=== PATIENT | female | born 1990 | race Caucasian/White ===

== ENCOUNTER 2021-02-17 21:17 | Emergency (ER) | payer BC, SELFPAY ==
--- NOTE | ~2021-02-17 | XR_ITS ---
EXAMINATION: XR shoulder RT min 2V DATE: 02/17/2021 21:35 INDICATION: Anterior right shoulder pain TECHNIQUE: AP internally and externally rotated, AP oblique externally rotated and transscapular Y vi ews of the right shoulder were obtained. COMPARISON: None FINDINGS: Normal alignment. No fracture. Glenohumeral joint is normal. Acromioclavicular joint is normal. Soft tissues are unremarkable. Visualized portions of the right lung are clear. IMPRESSION: Negative right shoulder radiographs. Reviewed, dictated and finalized at location A.
[2021-02-17 21:19] VITALS: BP 144/85; PULSE 88; RESP 18; TEMP 36.9; O2SAT 97
[2021-02-17] MEDS: KETOROLAC (*BKC) 60 MG/2 ML VIAL IM (21:57)
--- NOTE | 2021-02-17 23:02 | ED.GENADULT ---
HPI - General Adult General Chief complaint: Extremity Injury, Upper Stated complaint: right shoulder injury Time Seen by Provider: 02/17/21 21:32 History of Present Illness HPI narrative: Patient is a 30-year-old female who presents ER with right shoulder pain. Worsening over the last week. 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 No numbness or tingling going down the arm. No additional traumatic injury. Has trouble lifting her arm up above her shoulder due to this. Has not tried any pain medications. Related Data Home Medications Medication Instructions Recorded Confirmed No Home Medications 02/17/21 Allergies Allergy/AdvReac Type Severity Reaction Status Date / Time No Known Allergies Allergy Verified 02/17/21 21:17 Review of Systems Constitutional: Constitutional: Denies chills and Denies fever(s) Musculoskeletal: Musculoskeletal: Reports arthralgias, Denies joint swelling and Denies muscle cramps Neurologic: Denies focal weakness and Denies numbness PMFSH Past Medical History Medical History (Updated 02/17/21 @ 23:07 by Darrell Ceja MD) Healthy female adult Surgical History Surgical History (Updated 02/17/21 @ 23:07 by Darrell Ceja MD) History of section History of tubal ligation Social History Social History Gender identity (if verbalized by the patient): Female Exam Narrative: Exam Narrative: GENERAL: Well-appearing, well-nourished, and in no acute distress. HEAD: Normocephalic, atraumatic. EXTREMITIES: Focused exam of right upper extremity reveals no reproducible tenderness over the clavicle or acromial clavicular process. Mild anterior joint line tenderness. Passive range of motion intact. Active range of motion intact but has discomfort when she attempts to abduct above her shoulder level. Neurovascular intact. SKIN: Warm, dry, no rash. NEURO: Alert and oriented x3. PSYCH: Normal mood and affect. Course Course Emergency Course: Symptoms felt to be related to overuse injury with shoulder. Recommend rest as well as anti-inflammatories. Mild improvement with Toradol. Discharge home. Vital Signs Vital signs: Vital Signs Temperature 98.5 F 02/17/21 21:19 Pulse Rate 88 02/17/21 21:19 Respiratory Rate 18 02/17/21 21:19 Blood Pressure 144/85 H 02/17/21 21:19 Pulse Oximetry 97 02/17/21 21:19 Temperature 98.5 F 02/17/21 21:19 Pulse Rate 88 02/17/21 21:19 Respiratory Rate 18 02/17/21 21:19 Blood Pressure 144/85 H 02/17/21 21:19 Pulse Oximetry 97 02/17/21 21:19 Medical Decision Making Vital Signs Vital Signs: Vital Signs Temperature 98.5 F 02/17/21 21:19 Pulse Rate 88 02/17/21 21:19 Respiratory Rate 18 02/17/21 21:19 Blood Pressure 144/85 H 02/17/21 21:19 Pulse Oximetry 97 02/17/21 21:19 Temperature 98.5 F 02/17/21 21:19 Pulse Rate 88 02/17/21 21:19 Respiratory Rate 18 02/17/21 21:19 Blood Pressure 144/85 H 02/17/21 21:19 Pulse Oximetry 97 02/17/21 21:19 Imaging Data My impression: X-ray right shoulder: Negative. Discharge Plan Discharge Clinical Impression: Acute shoulder pain Patient Disposition: Home, Self-Care Condition: Stable Instructions: R.I.C.E. Treatment (ED), Shoulder Pain (ED) Additional Instructions: The pain in your shoulder is likely due to overuse/repetitive use injury. It will respond best to rest, ice, and anti-inflammatory medications. Return the ER if you suffer new injury, you have chest pain or shortness of breath, you have additional concerns. Prescriptions: New naproxen 500 mg tablet 500 mg PO BID Qty: 14 RF: 0 No Action No Home Medications RF: 0 Follow-up/Referrals: PHYSICIAN,CYLINDER INSPECTOR [Primary Care Provider] - Stevie Carmona MD [Physician] - 1 Week Stand Alone Forms: Work/School Release IP
[2021-02-17 23:07] VITALS: BP 138/72; PULSE 72; RESP 18; O2SAT 98
== END 2021-02-17 23:07 | disposition home or self-care (01) ==
PROVIDERS: Emergency Provider Emergency Medicine
DX: M25.511 Pain in right shoulder (principal)
CPT/HCPCS: 73030; 96372; 99283; J1885

== ENCOUNTER → 2021-10-01 01:16 | Outpatient (CLI) | payer BC, SELFPAY ==
[2021-10-01 21:22] LABS: SARS-CoV-2 RNA PCR Positive
== END ==
PROVIDERS: Visit Provider Emergency Medicine
DX: U07.1 COVID-19 (principal)
CPT/HCPCS: C9803; U0003; U0005

== ENCOUNTER 2021-10-04 12:57 | Outpatient (CLI) | payer BC, SELFPAY ==
--- NOTE | ~2021-10-04 | XR_ITS ---
XR chest 2V DATE: 10/04/2021 15:00 INDICATION: Cough TECHNIQUE: PA and lateral views COMPARISON: None FINDINGS: Normal heart size. No hilar or mediastinal enlargement. No pulmonary infiltrate or consolid ation, pleural effusion or pulmonary vascular congestion or pneumothorax is detected. Included skeletal structures are unremarkable. IMPRESSION: No active cardiopulmonary disease Reviewed, dictated and finalized at location A. 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
== END 2021-10-04 12:58 | disposition home or self-care (01) ==
LOC: ANHIMG 13:05
PROVIDERS: PCP Emergency Medicine; Visit Provider Emergency Medicine
DX: R05.9 Cough, unspecified (principal)
CPT/HCPCS: 71046

== ENCOUNTER 2024-04-22 10:12 | Emergency (ER) | payer SELFPAY ==
--- NOTE | ~2024-04-22 | CT_ITS ---
EXAMINATION: CT BRAIN W/O DATE: 04/22/2024 11:27 INDICATION: Seizures. TECHNIQUE: Computed tomography (CT) of the head was performed without intravenous contrast. The dose- length product was 605.33 mGy-cm. Automated exposure control and iterative reconstruction technique w ere employed. COMPARISON: No prior studies for comparison. FINDINGS: Normal brain parenchymal volume for age. Normal fatima-white differentiation. No acute intrac ranial hemorrhage, infarction, mass or mass effect. No ventriculomegaly or midline shift. Midline sagittal images demonstrate a normal corpus callosum, c raniovertebral junction and sella turcica. Basilar cisterns are patent. Paranasal sinuses and mastoids are pneumatized. No depressed skull fractures. IMPRESSION: 1. No acute intracranial abnormality. Reviewed, dictated and finalized at location B.
[2024-04-22 10:17] VITALS: BP 146/83; PULSE 85; RESP 20; TEMP 36.8; O2SAT 98
--- NOTE | 2024-04-22 11:16 | ED.GENADULT ---
[facility] - General Adult General Chief complaint: Unspecified Stated complaint: shakiness when sleeping Time Seen by Provider: 04/22/24 10:58 Source: patient Mode of arrival: ambulatory Limitations: no limitations History of Present Illness HPI narrative: this is a 34-year-old female who presents to the ED for chief complaint of shaking while sleeping. Patient states that her daughter has slept in her bed the past couple of nights and noticed that the patient will wake up and have a lot of upper body shaking. Daughter states that occurs from the waist up. Patient states that she had a nose bleed when she woke up yesterday. States that she has had some intermittent right-sided headache. This is not necessarily a new problem though. Headache is rated 3/10. Daughter states that the patient will wake up confused and go back to sleep and appears normal the next morning. Denies speech change, vision change, numbness, weakness, neck pain or stiffness, fevers, chills, nausea, vomiting Related Data Home Medications Medication Instructions Recorded Confirmed No Home Medications 02/17/21 Allergies Allergy/AdvReac Type Severity Reaction Status Date / Time No Known Allergies Allergy Verified 04/22/24 10:13 Review of Systems Review of Systems: All systems as dictated in [facility] Past Medical History Medical History (Updated 04/22/24 @ 11:42 by Jeff Gil PA-C) Healthy female adult Surgical History Surgical History (Updated 02/17/21 @ 23:07 by Darrell Ceja MD) History of section History of tubal ligation Social History Social History Gender identity (if verbalized by the patient): Female Exam Narrative: GENERAL: Well-appearing, well-nourished, and in no acute distress. HEAD: Normocephalic, atraumatic. EYES: PERRLA and EOMI. ENT: Nares clear, no rhinorrhea or epistaxis. Mucous membranes moist. Oropharynx without tonsillar hypertrophy exudate or other lesions. NECK: Supple. No adenopathy or masses. CHEST: No respiratory distress. Clear to auscultation. No wheezes rales or rhonchi HEART: Regular rate and rhythm. No murmur heard. Normal peripheral pulses. ABDOMEN: Soft, nontender, nondistended, normal active bowel sounds. MSK: Normal range of motion. No edema. SKIN: Warm, dry, no rash. NEURO: Alert and oriented x4. No focal deficits. cranial nerves 2-12 intact. PSYCH: Normal mood and affect. Course Vital Signs Vital signs: Vital Signs Temperature 98.3 F 04/22/24 10:17 Pulse Rate 85 04/22/24 10:17 Respiratory Rate 20 04/22/24 10:17 Blood Pressure 146/83 H 04/22/24 10:17 Pulse Oximetry 98 04/22/24 10:17 Oxygen Delivery Room Air 04/22/24 10:17 Temperature 98.3 F 04/22/24 10:17 Pulse Rate 89 04/22/24 11:57 Respiratory Rate 21 H 04/22/24 11:57 Blood Pressure 133/85 04/22/24 11:57 Pulse Oximetry 98 04/22/24 11:57 Oxygen Delivery Room Air 04/22/24 10:17 Medical Decision Making MDM Narrative Medical decision making narrative: This is a 34-year-old female who presents to the ED with chief complaint of shaking at night. Vitals are normal. Exam is benign. Neurologically fully intact. CT brain shows no acute findings. discussed with patient that there could be multiple etiologies of this shaking at night. She is well-appearing on re-evaluation. headache has improved with p.o. medications here. Pt will be discharged in stable condition. Return precautions given and supportive measures discussed. Pt is understanding and agreeable with plan for discharge and follow-up with PCP. Vital Signs Vital Signs: Vital Signs Temperature 98.3 F 04/22/24 10:17 Pulse Rate 85 04/22/24 10:17 Respiratory Rate 20 04/22/24 10:17 Blood Pressure 146/83 H 04/22/24 10:17 Pulse Oximetry 98 04/22/24 10:17 Oxygen Delivery Room Air 04/22/24 10:17 Temperature 98.3 F 04/22/24 10:17 Pulse Rate 89 04/22/24 11:5
[2024-04-22] MEDS: ACETAMINOPHEN 500 MG TABLET 1000 MG PO (11:45)
[2024-04-22] MEDS: IBUPROFEN 400 MG TABLET 800 MG PO (11:45)
[2024-04-22 11:57] VITALS: BP 133/85; PULSE 89; RESP 21; O2SAT 98
== END 2024-04-22 11:57 | disposition home or self-care (01) ==
PROVIDERS: Emergency Provider Physician Assistant
DX: R25.8 Other abnormal involuntary movements (principal)
CPT/HCPCS: 70450; 99284; A9270

== ENCOUNTER 2024-07-04 08:56 | Emergency (ER) | payer OTHER, SELFPAY ==
[2024-07-04 10:41] VITALS: RESP 18
[2024-07-04 10:44] VITALS: BP 145/99; PULSE 85; RESP 18; O2SAT 94
[2024-07-04] MEDS: IBUPROFEN 400 MG TABLET 800 MG PO (11:06)
--- NOTE | 2024-07-04 11:18 | ED.GENADULT ---
HPI - General Adult General Chief complaint: Unspecified Stated complaint: sore throat, body aches Time Seen by Provider: 07/04/24 10:57 Source: patient and RN notes reviewed Mode of arrival: ambulatory Limitations: no limitations History of Present Illness HPI narrative: This is a 34 year old female who presents for evaluation of URI. Patient states she has been ill for 2 days. She reports runny nose, congestion, dry cough, and sore throat for 2 days. She is unsure of fever but she reports chills. She is not taking any medication for her symptoms . She is eating without difficulty Related Data Home Medications Medication Instructions Recorded Confirmed No Home Medications 02/17/21 Allergies Allergy/AdvReac Type Severity Reaction Status Date / Time No Known Allergies Allergy Verified 07/04/24 08:58 Review of Systems Constitutional: Constitutional: Reports body ache(s), Reports headache(s) and Denies weakness ENT: Reports nasal congestion and Reports sore throat Cardiovascular: Cardiovascular: Denies syncope, Denies rapid heart rate, Denies irregular heart rhythm, Denies leg edema and Denies dyspnea Respiratory: Respiratory: Denies chest congestion, Reports cough, Denies hemoptysis, Denies excessive phlegm production and Denies dyspnea Gastrointestinal: Gastrointestinal: Denies abdominal pain, Denies hematochezia, Denies diarrhea and Denies vomiting Genitourinary: Genitourinary: Denies hematuria and Denies dysuria Musculoskeletal: Musculoskeletal: Denies joint swelling, Denies loss of height and Denies muscle weakness Neurologic: Denies syncope, Denies focal weakness and Denies weakness PMFSH Past Medical History Medical History Healthy female adult Surgical History Surgical History (Updated 02/17/21 @ 23:07 by Darrell Ceja MD) History of section History of tubal ligation Social History Social History Gender identity (if verbalized by the patient): Female Exam Narrative: GENERAL: well-nourished, and in no acute distress. HEAD: Normocephalic, atraumatic EYES: PERRLA and EOMI, conjunctiva clear without discharge EARS: TM's clear bilaterally without erythema or dullness NOSE: Nares clear, no rhinorrhea or epistaxis THROAT:Mucous membranes moist, Oropharynx normal without erythema, exudate, peritonsillar swelling or fluctuance NECK: Supple, without lymphadenopathy or mass RESPIRATORY: No respiratory distress, Airway patent, Respirations non-labored, Clear to auscultation without rales, rhonchi or wheeze HEART: Regular rate and rhythm. No murmur heard. Normal peripheral pulses. ABDOMEN: Soft, nontender, nondistended, normal active bowel sounds. No masses. No rebound or guarding, No organomegaly. EXTREMITIES: No edema, normal strength with full range of motion. SKIN: Warm, dry, normal color without rash NEURO: Alert and oriented x3. CN 2-12 grossly intact. No focal deficits. PSYCH: Normal mood and affect. Course Reevaluation(s) Reevaluation #1: I Discussed with patient that she has been found to have covid. PAtient is stable for discharge. Date: 07/04/24 Time: 11:45 Vital Signs Vital signs: Vital Signs Respiratory Rate 18 07/04/24 10:41 Temperature 98.4 F 07/04/24 11:48 Pulse Rate 80 07/04/24 12:00 Respiratory Rate 19 07/04/24 12:00 Blood Pressure 132/71 07/04/24 12:00 Pulse Oximetry 98 07/04/24 12:00 Medical Decision Making Vital Signs Vital Signs: Vital Signs Respiratory Rate 18 07/04/24 10:41 Temperature 98.4 F 07/04/24 11:48 Pulse Rate 80 07/04/24 12:00 Respiratory Rate 19 07/04/24 12:00 Blood Pressure 132/71 07/04/24 12:00 Pulse Oximetry 98 07/04/24 12:00 Lab Data Lab results reviewed: Yes I reviewed the patient's lab results. Labs: Lab Results 07/04/24 Range/U
[2024-07-04 11:34] LABS: Influenza A QL RT-PCR Negative (Negative); Influenza B QL RT-PCR Negative (Negative); RSV RNA, RT-PCR Negative (Negative); SARS-CoV-2 RNA PCR Positive (Negative)
[2024-07-04 11:48] VITALS: TEMP 36.9
[2024-07-04 12:00] VITALS: BP 132/71; PULSE 80; RESP 19; O2SAT 98
== END 2024-07-04 12:01 | disposition home or self-care (01) ==
PROVIDERS: Emergency Medicine; Emergency Provider General Practice
DX: U07.1 COVID-19 (principal)
CPT/HCPCS: 87637; 99283; A9270

== ENCOUNTER 2024-09-17 17:37 | Emergency (ER) | payer OTHER, SELFPAY ==
--- NOTE | ~2024-09-17 | XR_ITS ---
EXAMINATION: XR lumbar spine 2-3V DATE: 09/17/2024 18:10 INDICATION: Low back injury. TECHNIQUE: 3 views of lumbar spine were obtained. COMPARISON: Lumbar spine radiographs 10/12/2016 FINDINGS: Alignment is normal. Vertebral body heights and intervertebral disc heights are normal. The re is an osteophyte at superior endplate of L4. There is multilevel mild facet joint osteoarthritis. Surgical clips in the right upper quadrant are likely from cholecystectomy. IMPRESSION: 1. Mild lumbar spondylosis. Reviewed, dictated and finalized at location A. 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 Mild lumbar spondylosis.
[2024-09-17 17:40] VITALS: BP 149/96; PULSE 91; RESP 18; TEMP 36.5; O2SAT 100
--- NOTE | 2024-09-17 18:03 | ED.GENADULT ---
HPI - General Adult General Chief complaint: Fall Stated complaint: fall Time Seen by Provider: 09/17/24 17:47 History of Present Illness HPI narrative: Patient is a 34-year-old female who presents ER for evaluation. She was at work when she tripped and fell striking her left lower back just above the gluteal cleft on a safe. Sudden onset pain. Developed bruising. Bruising and area of discomfort have increased. She feels some mild numbness in the area. No saddle anesthesia. No difficulty with urination. She is able to ambulate. Did not strike her head or lose consciousness. Related Data Allergies Allergy/AdvReac Type Severity Reaction Status Date / Time No Known Allergies Allergy Verified 09/17/24 17:38 Review of Systems Constitutional: Constitutional: Reports no additional constitutional complaints Musculoskeletal: Musculoskeletal: Reports back pain, Denies arthralgias and Denies joint swelling Neurologic: Reports system reviewed and no additional complaints, except as documented PMFSH Past Medical History Medical History Healthy female adult Surgical History Surgical History (Updated 02/17/21 @ 23:07 by Darrell Ceja MD) History of tubal ligation History of section Social History Social History Gender identity (if verbalized by the patient): Female Exam Narrative: GENERAL: Well-appearing, well-nourished, and in no acute distress. HEAD: Normocephalic, atraumatic. ENT: Mucous membranes moist. Back: No midline tenderness of the T/L-spine. There is bruising ear L5 laterally on left sides. The gluteal cleft. Sharp and soft touch intact. EXTREMITIES: Normal range of motion. No edema. SKIN: Warm, dry, no rash. NEURO: Alert and oriented x3. PSYCH: Normal mood and affect. Course Course Emergency Course: Toradol for pain. No fracture. D/c with naproxen/flexeril. F/u with PCP. Vital Signs Vital signs: Vital Signs Temperature 97.7 F 09/17/24 17:40 Pulse Rate 91 09/17/24 17:40 Respiratory Rate 18 09/17/24 17:40 Blood Pressure 149/96 H 09/17/24 17:40 Pulse Oximetry 100 09/17/24 17:40 Oxygen Delivery Room Air 09/17/24 17:40 Temperature 97.7 F 09/17/24 17:40 Pulse Rate 91 09/17/24 17:40 Respiratory Rate 18 09/17/24 17:40 Blood Pressure 149/96 H 09/17/24 17:40 Pulse Oximetry 100 09/17/24 17:40 Oxygen Delivery Room Air 09/17/24 17:40 Medical Decision Making Vital Signs Vital Signs: Vital Signs Temperature 97.7 F 09/17/24 17:40 Pulse Rate 91 09/17/24 17:40 Respiratory Rate 18 09/17/24 17:40 Blood Pressure 149/96 H 09/17/24 17:40 Pulse Oximetry 100 09/17/24 17:40 Oxygen Delivery Room Air 09/17/24 17:40 Temperature 97.7 F 09/17/24 17:40 Pulse Rate 91 09/17/24 17:40 Respiratory Rate 18 09/17/24 17:40 Blood Pressure 149/96 H 09/17/24 17:40 Pulse Oximetry 100 09/17/24 17:40 Oxygen Delivery Room Air 09/17/24 17:40 Imaging Data Radiologist's impression: ITS Impressions Lumbar Spine X-Ray 09/17/24 18:19 IMPRESSION: 1. Mild lumbar spondylosis. Discharge Plan Discharge Clinical Impression: Contusion of back Patient Disposition: Home, Self-Care Condition: Stable Instructions: Contusion in Adults (ED) Additional Instructions: You have a bruise severe left low back he may have strained a muscle. Take anti-inflammatories muscle relaxers. Ice the area. Follow-up with your primary care doctor for further treatment and evaluation. Please return to the emergency department if you develop severe pain that is not controlled by pain medications or if you are unable to walk because of pain or weakness. Return to the emergency department immediately if you develop fevers, loss of bowel or bladder control (dribbling of urine or having accidents you wouldn't normally have), inability to urinate, numbness of your genital or anal area, or weakness/numbness of your legs or arms as these could all be signs of a serious medical emergency. Patient Language: Icelandic Prescriptions: New cyclobenzaprine 10 mg tablet 10 mg PO TID PRN (Reason: muscle spasm) Qty: 20 0RF naproxen 375 mg tablet 375 mg PO BID Qty: 14 0RF No Action naproxen 500 mg tablet 500 mg PO BID Qty: 14 0RF Follow-up/Referrals: Shamar Pimentel MD [Physician] - 1 Week PHYSICIAN,OUTSOLE SPLICER [Primary Care Provider] - Stand Alone Forms: Work/School Release IP
[2024-09-17] MEDS: KETOROLAC (*BKC) 60 MG/2 ML VIAL IM (18:21)
== END 2024-09-17 18:49 | disposition home or self-care (01) ==
PROVIDERS: Emergency Provider Emergency Medicine
DX: S30.0XXA Contusion of lower back and pelvis, initial encounter (principal); M47.816 Spondylosis without myelopathy or radiculopathy, lumbar region; W01.0XXA Fall on same level from slipping, tripping and stumbling without subsequent striking against object, initial encounter
CPT/HCPCS: 72100; 96372; 99283; J1885

== ENCOUNTER 2024-12-13 00:24 | Emergency (ER) | payer OTHER, SELFPAY ==
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
--- OUTSIDE RECORDS SUMMARY | 2024-12-13 00:26 | XMS_ITS | Clinical Summary ---
Author Organization [facility] Address [address] [place] [address] Phone Care Team Providers Care Surtass Analyst Name Role Phone Provider, None Primary Care Provider Unavailabl e Allergies No known active allergies Medications No known medications Immunizations Immunization Administration Dates Next Due TDAP Vaccine 09/24/2019 Social History Tobacco Use Types Packs/Day Years Used Date Smoking Tobacco: Every Day Smokeless Tobacco: Never Alcohol Use Standard Drinks/Week Comments Never 0 (1 standard drink = 0.6 oz pur e alcohol) AUDIT-C Answer Date Recorded Frequency of Alcohol Consumption Never 09/24/2019 Average Number of Drinks Not on file 019 Frequency of Binge Drinking Not on file 08/30 Comments Unknown Sex and Gender Information Value Date Recorded Sex Assigned at Not on file Legal Sex Female 8:52 PM ELECTRICAL PROSPECTING SUPERVISOR Gender Identity Not on file Sexual Orientation Not on file Last Filed Vital Signs Vital Sign Reading Time Taken Comments Blood Pressure 136/78 10/03/2019 11:15 AM ELECTRICAL PROSPECTING SUPERVISOR Pulse 87 10/03/2019 11:15 AM ELECTRICAL PROSPECTING SUPERVISOR Temperature 36.9 C (98.4 F) 10/03/2019 11:15 AM ELECTRICAL PROSPECTING SUPERVISOR Respiratory Rate 16 10/03/2019 11:15 AM ELECTRICAL PROSPECTING SUPERVISOR Oxygen Saturation 100% 10/03/2019 11:15 AM ELECTRICAL PROSPECTING SUPERVISOR Inhaled Oxygen Concentration - - Weight 90.7 kg (200 lb) 10/03/2019 11:15 AM ELECTRICAL PROSPECTING SUPERVISOR Height 175.3 cm (5' 9 ) 10/03/2019 11:15 AM ELECTRICAL PROSPECTING SUPERVISOR Body Mass Index 29.53 10/03/2019 11:15 AM ELECTRICAL PROSPECTING SUPERVISOR Plan of Treatment Health Maintenance Due Date Last Done Comments Hepatitis C Virus (HCV) Screening 1991 Hepatitis B Immunization (1 of 3 - 19+ 3-dose series) 2010 Pap Smear 2012 Cervical Cancer Screening (CCS) 2021 HPV/Cotest 2021 Influenza Immunization (#1) 2024 SARS-COV-2 Immunization ( season) 2024 01/20/2021, 12/30/2020 Respiratory Syncytial Virus (RSV) Immunization (Adult) (1 - 1-dose 75+ series) 2066 DTaP/Tdap/Td Immunization Discontinued 09/24/2019 Meningococcal Immunization (ACWY) Aged Out No longer eligible based on patient's age to complete this topic Pneumococcal Immunization Combined Aged Out No longer eligible based on patient's age to complete this topic Rotavirus Immunization Aged Out No lo nger eligible based on patient's age to complete this topic Insurance [place] [place] [id number] Care Teams Surtass Analyst Relationship Specialty Start Date End Date Provider, None [place] PCP - General 08/29/19
--- OUTSIDE RECORDS SUMMARY | 2024-12-13 00:26 | XMS_ITS | Clinical Summary ---
Author Organization [facility] Address [address] [place] [id number] Care Team Providers Care Golf Course Designer Name Role Phone Unavailable Primary Care Provider Unavailabl e Social History Tobacco Use Types Packs/Day Years Used Date Smoking Tobacco: Never Assessed Comments Unknown Sex and Gender Information Value Date Recorded Sex Assigned at Not on file Legal Sex Female 8:00 PM CDT Gender Identity Not on file Sexual Orientation Not on file Last Filed Vital Signs Vital Sign Reading Time Taken Comments Blood Pressure 124/80 06/16/2017 4:47 PM CDT Pulse 94 06/16/2017 4:47 PM CDT Temperature - - Respiratory Rate - - Oxygen Saturation - - Inhaled Oxygen Concentration - - Weight 109 kg (240 lb 6.1 oz) 06/16/2017 4:47 PM CDT Height 175.3 cm (5' 9 ) 06/16/2017 4:47 PM CDT Body Mass Index 35.5 06/16/2017 4:47 PM CDT Plan of Treatment Health Maintenance Due Date Last Done Comments Cervical Cancer Screening Pa p Smear (Age 30 to 64) Every 3 Years 1991 Annual Physical 1994 Hepatitis C 2009 DTaP, Tdap and Td Vaccines ( 1 - Tdap) 2010 Hepatitis B Vaccines (1 of 3 - 19+ 3-dose series) 2010 Cervical Cancer Screening Pa p with HPV Testing (Age 30 to 64) Every 5 Years 2021 Cervical Cancer Screening with HPV 2021 COVID-19 Vaccine ( - 2023-2 5 season) 2024 Influenza Adult (#1) 2024 HPV Vaccines Aged Out No longer eligi ble based on patient's age to complete this topic Meningococcal B Vaccine Aged Out No l onger eligible based on patient's age to complete this topic Meningococcal Vaccine Aged Out No jose antonio sary eligible based on patient's age to complete this topic Pneumococcal Vaccine: Pediat rics (0 to 5 Years) and At-Risk Patients (6 to 64 Years) Aged Out No longer eligible b ased on patient's age to complete this topic RSV Immunizations Under 20 Months Aged Out No longer eligible based on patient's age to complete this topic
--- OUTSIDE RECORDS SUMMARY | 2024-12-13 00:27 | XMS_ITS | Clinical Summary ---
Author Organization [facility] Address [address] [place] [address] Care Team Providers Care Laborer Electroplating Name Role Phone Stevie Carmona MD Primary Care Provider [phone] Allergies No known active allergies Medications ondansetron ODT (ZOFRAN-ODT) 4 mg disintegrating tablet Take 1 tablet (4 mg total) by mouth every 8 (eight) hours as needed for nausea 20 tablet Active Social History Tobacco Use Types Packs/Day Years Used Date Smoking Tobacco: Never Assessed Personal Safety Answer Date Recorded Getting School Help Needed Not on file 11/29 Comments No Sex and Gender Information Value Date Recorded Sex Assigned at Not on file Legal Sex Female 10:31 AM CDT Gender Identity Not on file Sexual Orientation Not on file Last Filed Vital Signs Vital Sign Reading Time Taken Comments Blood Pressure 127/76 01/31/2022 2:38 PM CDT Pulse 73 01/31/2022 2:38 PM CDT Temperature 36.9 C (98.4 F) 01/31/2022 10:46 AM CDT Respiratory Rate 16 01/31/2022 2:38 PM CDT Oxygen Saturation 100% 01/31/2022 2:38 PM CDT Inhaled Oxygen Concentration - - Weight 109.1 kg (240 lb 8.4 oz) 022 10:46 AM CDT Height 175.3 cm (5' 9 ) 01/31/2022 10:4 6 AM CDT Body Mass Index 35.52 01/31/2022 10:46 AM CDT Plan of Treatment Health Maintenance Due Date Last Done Comments Cervical Cancer Screening 1991 Depression Screening 1991 Hepatitis C Screening 1991 Varicella Vaccines (1 of 2 - 13+ 2-dose series) 2004 Hepatitis B Screening 2009 Regular Well Visit/Exam 18-64 2009 Covid-19 Vaccine (3 2023-2 5 season) 2024 01/20/2021, 12/30/2020 Influenza Vaccine (#1) 2024 DTaP/Tdap/Td Vaccine (2 - Td or Tdap) 09/24/2029 09/24/2019 HPV Vaccines Aged Out No longer eligi ble based on patient's age to complete this topic Pneumococcal vaccine <65 Aged Out No longer eligible based on patient's age to complete this topic Insurance [facility] Care Teams Laborer Electroplating Relationship Specialty Start Date End Date Stevie Carmona MD PCP - General Emergency Medicine 01/31/22
--- OUTSIDE RECORDS SUMMARY | 2024-12-13 00:27 | XMS_ITS | Referral Summary ---
Author Organization [facility] Address [address] [place] [address] Care Team Providers Care Instruction Assistant Principal Name Role Phone Stevie Carmona MD Primary Care Provider [phone] Allergies No known active allergies Medications ondansetron [...] 01/31/2022 10:46 AM CDT Plan of Treatment Not on file Insurance [facility] PL[facility] Care Teams Instruction Assistant Principal Relationship Specialty Start Date End Date Stevie Carmona MD PCP - General Emergency Medicine 01/31/22
[2024-12-13 00:32] VITALS: BP 152/104; PULSE 82; RESP 17; TEMP 36.6; O2SAT 100
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
--- OUTSIDE RECORDS SUMMARY | 2024-12-13 01:39 | XMS_ITS | Clinical Summary ---
Author Organization [facility] ([place], [place]) Address [address] [place] [address] Care Team Providers Care Clinical Nursing Intern Name Role Phone Stevie Carmona MD Primary Care Provider [phone] Allergies No known active allergies Medications ondansetron [...] patient's age to complete this topic Insurance [facility] PL[facility] Care Teams Clinical Nursing Intern Relationship Specialty Start Date End Date Stevie Carmona MD PCP - General Emergency Medicine 01/31/22
--- OUTSIDE RECORDS SUMMARY | 2024-12-13 01:39 | XMS_ITS | Clinical Summary ---
Author Organization [facility] Address [address] [place] [address] Phone Care Team Providers Care Window Glass Cutter Off Name Role Phone Provider, None Primary Care [...] on file Legal Sex Female 8:52 PM SALES OPERATIONS SPECIALIST Gender Identity Not on file Sexual Orientation Not on file Last Filed Vital Signs Vital Sign Reading Time Taken Comments Blood Pressure 136/78 10/03/2019 11:15 AM SALES OPERATIONS SPECIALIST Pulse 87 10/03/2019 11:15 AM SALES OPERATIONS SPECIALIST Temperature 36.9 C (98.4 F) 10/03/2019 11:15 AM SALES OPERATIONS SPECIALIST Respiratory Rate 16 10/03/2019 11:15 AM SALES OPERATIONS SPECIALIST Oxygen Saturation 100% 10/03/2019 11:15 AM SALES OPERATIONS SPECIALIST Inhaled Oxygen Concentration - - Weight 90.7 kg (200 lb) 10/03/2019 11:15 AM SALES OPERATIONS SPECIALIST Height 175.3 cm (5' 9 ) 10/03/2019 11:15 AM SALES OPERATIONS SPECIALIST Body Mass Index 29.53 10/03/2019 11:15 AM SALES OPERATIONS SPECIALIST Plan of Treatment Health Maintenance Due Date [...] to complete this topic Insurance [employer] [id number] Care Teams Window Glass Cutter Off Relationship Specialty Start Date End Date Provider, None [place] PCP - General 08/29/19
--- OUTSIDE RECORDS SUMMARY | 2024-12-13 01:39 | XMS_ITS | Clinical Summary ---
Author Organization [facility] Address [address] [place] [id number] Care Team Providers Care Shredding Machine Knife Changer Name Role Phone Unavailable Primary Care Provider [...]
--- OUTSIDE RECORDS SUMMARY | 2024-12-13 01:39 | XMS_ITS | Referral Summary ---
Author Organization [facility] Address [address] [place] [address] Care Team Providers Care Sand Control Worker Name Role Phone Stevie Carmona MD Primary Care Provider [phone] Allergies No known active allergies Medications ondansetron [...] Plan of Treatment Not on file Insurance [facility] [employer] Member Subscriber Plan / Payer (Ef fective 2022-Present) Name:Christy Ortega Relation to Subscriber:Self Name:Christy Ortega Payer ID:[id number] (NAIC) Group ID:Not on file Type:MEDICAID RISK OTHER Address: [facility] [place] [address] [facility] [employer] Care Teams Sand Control Worker Relationship Specialty Start Date End Date Stevie Carmona MD PCP - General Emergency Medicine 01/31/22
[2024-12-13 02:09] LABS: Basophils Percent Auto 0.3 % (0.2-1.2); Eosinophils Absolute Auto 0.5 K/mm3 (0-0.3); Eosinophils Percent Auto 4.9 % (0-4.4); Hematocrit 38.6 % (37.0-47.0); Hemoglobin 12.8 g/dL (12.0-15.0); Immature Granulocyte Absolute 0.02 K/mm3 (0.00-0.031); Immature Granulocyte Percent A 0.2 % (0-0.5); Lymphocytes Absolute Auto 2.45 K/mm3 (0.9-3.2); Lymphocytes Percent Auto 26.3 % (18.3-44.2); Mean Corpuscular HGB Conc 33.2 g/dl (32-36); Mean Corpuscular Hemoglobin 31.1 pg (26-34); Mean Corpuscular Volume 93.9 fl (80-100); Mean Platelet Volume 9.9 fl (7.4-10.4); Monocytes Absolute Auto 0.7 K/mm3 (0.1-0.6); Monocytes Percent Auto 7.8 % (2.6-8.5); Neutrophils Absolute Auto 5.6 K/mm3 (1.3-6.7); Neutrophils Percent Auto 60.5 % (45.5-73.1); Platelet Count Result 353 k/mm3 (150-375); Red Blood Count 4.11 M/mm3 (4.2-5.4); Red Cell Distribution Width 12.9 % (11.5-14.5); White Blood Count 9.3 K/mm3 (4.5-10.0)
[2024-12-13 02:22] LABS: Alanine Aminotransferase 26 U/L (6-35); Albumin Level 4.1 g/dL (3.5-5.1); Alkaline Phosphatase 67 U/L (38-126); Anion Gap 12 mmol/L (4-12); Aspartate Amino Transferase 21 U/L (14-36); Bilirubin,Total 0.3 mg/dL (0.2-1.3); Blood Urea Nitrogen 11 mg/dL (7-17); Carbon Dioxide 24 mmol/L (22-30); Chloride 103 mmol/L (98-107); Estimated CRCL calculation 134 ml/min; Estimated Glomerular Filt Rate > 60; Glucose 105 mg/dL (65-110); Sodium 139 mmol/L (137-145)
[2024-12-13 02:23] LABS: BEDSIDEPREGUCG Negative (Negative)
[2024-12-13] MEDS: LIDOCAINE 5% PATCH 1 PATCH TRANSDERM (03:34)
[2024-12-13] MEDS: HYDROcodone/acetaminophen (*CRX) 5-325 MG TABLET 1 TAB PO (03:35)
[2024-12-13] MEDS: KETOROLAC 30 MG/ML VIAL (*BKC) IM (03:35)
[2024-12-13 03:40] LABS: Add Urine Microscopic? YES; Appearance Urine Turbid (Clear); Bacteria Urine 4+ /hpf; Bilirubin Urine 1+ (Negative); Blood Urine 3+ (Negative); Glucose Urine UA Negative (Negative); Ketones Urine Negative (Negative); Leukocyte Esterase Ur 2+ LEU/UL (Negative); Need Manual Microscopic Reviewed; Nitrate Urine Positive (Negative); Non Pathogenic Casts 0-2; Protein Urine 2+ mg/dL (Negative); Specific Grav Ur 1.028 (1.001-1.035); Squamous Epithelial Cell Urine Occasional /hpf (Few); Urobilinogen Urine 0.2 mg/dL (<2.0)
[2024-12-13 03:41] VITALS: BP 129/86; PULSE 79; RESP 14; O2SAT 98
[2024-12-13 03:42] LABS: Color Urine Brown (Yellow); RBC Urine >100 /hpf (0-2)
[2024-12-13] MEDS: SULFAMETHOXAZOLE/TRIMETHOPRIM 800/160 MG DS TABLET 1 TAB PO (05:11)
== END 2024-12-13 06:06 | disposition home or self-care (01) ==
PROVIDERS: Emergency Provider Student in an Organized Health Care Education/Training Program
DX: S30.1XXA Contusion of abdominal wall, initial encounter (principal); S70.02XA Contusion of left hip, initial encounter; S39.92XA Unspecified injury of lower back, initial encounter; N39.0 Urinary tract infection, site not specified; V43.52XA Car driver injured in collision with other type car in traffic accident, initial encounter
CPT/HCPCS: 36415; 71260; 72129; 72132; 74177; 80053; 81001; 81025; 85025; 87086; 87186; 96372; 99284; A9270; J1885; Q9967

== ENCOUNTER 2025-08-03 09:29 | Emergency (ER) | payer OTHER, SELFPAY ==
--- NOTE | ~2025-08-03 | XR_ITS ---
Examination: XR ankle LT min 3V, XR foot LT min 3V Clinical History: FALL X TODAY PAIN LT FOOT/ ANKLE Comparison: None Technique: 4 views left ankle, 4 views left foot Findings/impression: Left ankle: 1. No acute fracture or dislocation left ankle. 2. Chronic avulsion fracture fragment lateral malleolus tip. Left foot: 1. No fracture or dislocation. Reviewed, dictated and finalized at location [facility]. [facility]
[2025-08-03 09:33] VITALS: BP 146/99; PULSE 95; RESP 18; TEMP 36.5; O2SAT 98
--- OUTSIDE RECORDS SUMMARY | 2025-08-03 10:11 | XMS_ITS | Data Portability ---
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 Plan of Treatment Reminders Order Date Submit Date Provider Last Modified By Organization Details Last Modified Time Details Appointments None recorded. Lab CBC 2015 016 CHRISTINA In-Office Order, Internal Use Only DO Not Attach Compendium DO Not Attach Compendium, Do Not Delete/merge, [id number] 6 16:17:56 CMP, serum or plasma 2015 016 EPS [facility], [address], [address], [place], [address], 6 07:19:57 TSH, serum or plasma 2015 016 EPS [facility], [address], [address], [place], [address], 6 07:19:58 CMP, serum or plasma 2014 015 EPS [facility], [address], [address], [place], [address], 5 06:36:08 amylase, serum or plasma 2014 015 EPS [facility], [address], [address], [place], [address], 5 06:36:08 lipase, serum or plasma 2014 015 CHRISTINA [employer] [facility], [address], [address], [place], [address], 5 06:36:09 CBC 2014 015 CHRISTINA In-Office Order, Internal Use Only DO Not Attach Compendium DO Not Attach Compendium, Do Not Delete/merge, [id number] 5 15:58:12 Referral None recorded. Procedures None recorded. Surgeries None recorded. Imaging ultrasound , gallbladde r [address] Scheduling Imaging Referrals, [address], [place], [address], 5 09:47:13 ultrasound , abdomen, limited 2014 015 [facility] Scheduling Imaging Referrals, [address], [place], [address], 5 12:22:25 Medication Orders lisinopril 10 mg tablet 2015 016 INTERFACE [facility], [facility]., [address], [place], [place], [id number], 6 15:43:04 Nifedical XL 30 mg tablet,ext ended release [address], [facility]., [address], [place], [place], [id number], 5 14:22:15 Patient TargetsNo targets recorded. Patient Instructions Encounter Date Encounter Id Patient Instructions Last Modified By Organization Details Last Modified Time 03/07/2015 [id number] Keep wound clean and dry. Return if develops sign of infection, draining pus, erythema or pain. [email or web address] Not available 03/07/2015 16:55:00 03/17/2015 [id number] She will follow up if her headache worsens or her blood pressure goes higher. [email or web address] Not available 03/17/2015 15:04:51 12/29/2015 [id number] dash diet: care instructions [email or web address] Not available 12/29/2015 15:37:18 Follow-up in one month or sooner if needed. [email or web address] Not available 12/29/2015 15:34:09 Greater than 50% of this visit was spent in counseling and coordination of care. 15 mins. [email or web address] Not available 12/29/2015 15:34:09 Reason for Referral None Reported. Results Created Date Observation Date Name Description Value Unit Range Abnormal Flag Note LastModifiedBy Organization Detail LastModifiedTime 03/17/20 15 03/18/2015 CMP, serum or plasm a glucose 75 mg/dL 65-99 normal Fasti ng refer ence inter [email or web address] Not Available [address], [address], 03/18/2015 06:36:08 03/17/20 15 03/18/2015 CMP, serum or plasm a urea nitrogen (BUN) 12 mg/dL 7-25 normal Not Available [address], [address], 03/18/2015 06:36:08 03/17/20 15 03/18/2015 CMP, serum or plasm a creatinine 0.77 mg/dL 0.50-1 .10 normal Not Available [address], [address], 03/18/2015 06:36:08 03/17/20 15 03/18/2015 CMP, serum or plasm a BUN/creatini ne ratio NOT APPLIC ABLE (calc ) 6-22 Not Available [facility] [address], [address], 03/18/2015 06:36:08 03/17/20 15 03/18/2015 CMP, serum or plasm a sodium 142 mmol/ L 135-14 6 normal Not Available [address], [address], 03/18/2015 06:36:08 03/17/20 15 03/18/2015 CMP, serum or plasm a potassium 4.5 mmol/ L 3.5-5. 3 normal Not Available [address], [address], 03/18/2015 06:36:08 03/17/20 15 03/18/2015 CMP, serum or plasm a chloride 107 mmol/ L 98-110 normal Not Available [address], [address], 03/18/2015 06:36:08 03/17/20 15 03/18/2015 CMP, serum or plasm a carbon dioxide 26 mmol/ L 19-30 normal Not Available [address], [address], 03/18/2015 06:36:08 03/17/20 15 03/18/2015 CMP, serum or plasm a calcium 9.5 mg/dL 8.6-10 .2 normal Not Available [address], [address], 03/18/2015 06:36:08 03/17/20 15 03/18/2015 CMP, serum or plasm a protein, total 7.0 g/dL 6.1-8. 1 normal Not Available [address], [address], 03/18/2015 06:36:08 03/17/20 15 03/18/2015 CMP, serum or plasm a albumin 4.1 g/dL 3.6-5. 1 normal Not Available [address], [address], 03/18/2015 06:36:08 03/17/20 15 03/18/2015 CMP, serum or plasm a globulin 2.9 g/dL_ (calc ) 1.9-3. 7 normal Not Available [address], [address], 03/18/2015 06:36:08 03/17/20 15 03/18/2015 CMP, serum or plasm a albumin/glob ulin ratio 1.4 (calc ) 1.0-2. 5 normal Not Available [address], [address], 03/18/2015 06:36:08 03/17/20 15 03/18/2015 CMP, serum or plasm a bilirubin, total 0.4 mg/dL 0.2-1. 2 normal Not Available [address], [address], 03/18/2015 06:36:08 03/17/20 15 03/18/2015 CMP, serum or plasm a alkaline phosphatase 72 U/L 33-115 normal Not Available [facility] [employer] [address], [address], 03/18/2015 06:36:08 03/17/20 15 03/18/2015 CMP, serum or plasm a AST 16 U/L 10-30 normal Not Available [address], [address], 03/18/2015 06:36:08 03/17/20 15 03/18/2015 CMP, serum or plasm a ALT 23 U/L 6-29 normal Not Available [address], [address], 03/18/2015 06:36:08 03/17/20 15 03/18/2015 amyla se, serum or plasm a amylase 35 U/L 21-101 normal Not Available [address], [address], 03/18/2015 06:36:08 03/17/20 15 03/18/2015 lipas e, serum or plasm a lipase 56 U/L 7-60 normal Not Available [address], [address], 03/18/2015 06:36:09 12/29/19 16 12/30/2015 CMP, serum or plasm a glucose 73 mg/dL 65-99 normal Fasti ng refer ence inter jessica Not Available [address], [address], 12/30/2015 07:19:57 12/29/19 16 12/30/2015 CMP, serum or plasm a urea nitrogen (BUN) 18 mg/dL 7-25 normal Not Available [address], [address], 12/30/2015 07:19:57 12/29/1912/30/2015 CMP, serum or plasm a creatinine 0.73 mg/dL 0.50-1 .10 normal Not Available [address], [address], 12/30/2015 07:19:57 12/29/1912/30/2015 CMP, serum or plasm a eGFR non-afr. mauritian 115 mL/mi n/1.7 3m2 > or = 60 normal Not Available [address], [address], 12/30/2015 07:19:57 12/29/1912/30/2015 CMP, serum or plasm a eGFR 134 mL/mi n/1.7 3m2 > or = 60 normal Not Available [address], [address], 12/30/2015 07:19:57 12/29/1912/30/2015 CMP, serum or plasm a BUN/creatini ne ratio NOT APPLIC ABLE (calc ) 6-22 Not Available [address], [address], 12/30/2015 07:19:57 12/29/1912/30/2015 CMP, serum or plasm a sodium 140 mmol/ L 135-14 6 normal Not Available [address], [address], 12/30/2015 07:19:57 12/29/192016 CMP, serum or plasm a potassium 3.7 mmol/ L 3.5-5. 3 normal Not Available [address], [address], 12/30/2015 07:19:57 12/29/19 16 12/30/2015 CMP, serum or plasm a chloride 105 mmol/ L 98-110 normal Not Available [address], [address], 12/30/2015 07:19:57 12/29/1912/30/2015 CMP, serum or plasm a carbon dioxide 26 mmol/ L 19-30 normal Not Available [address], [address], 12/30/2015 07:19:57 12/29/1912/30/2015 CMP, serum or plasm a calcium 9.8 mg/dL 8.6-10 .2 normal Not Available [address], [address], 12/30/2015 07:19:57 12/29/1912/30/2015 CMP, serum or plasm a protein, total 7.1 g/dL 6.1-8. 1 normal Not Available [address], [address], 12/30/2015 07:19:57 12/29/1912/30/2015 CMP, serum or plasm a albumin 4.2 g/dL 3.6-5. 1 normal Not Available [address], [address], 12/30/2015 07:19:57 12/29/1912/30/2015 CMP, serum or plasm a globulin 2.9 g/dL_ (calc ) 1.9-3. 7 normal Not Available [address], [address], 12/30/2015 07:19:57 12/29/19 16 12/30/2015 CMP, serum or plasm a albumin/glob ulin ratio 1.4 (calc ) 1.0-2. 5 normal Not Available [address], [address], 12/30/2015 07:19:57 12/29/19 16 12/30/2015 CMP, serum or plasm a bilirubin, total 0.3 mg/dL 0.2-1. 2 normal Not Available [address], [address], 12/30/2015 07:19:57 12/29/19 16 12/30/2015 CMP, serum or plasm a alkaline phosphatase 56 U/L 33-115 normal Not Available [facility] [employer] [address], [address], 12/30/2015 07:19:57 12/29/19 16 12/30/2015 CMP, serum or plasm a AST 13 U/L 10-30 normal Not Available [address], [address], 12/30/2015 07:19:57 12/29/19 16 12/30/2015 CMP, serum or plasm a ALT 15 U/L 6-29 normal Not Available [address], [address], 12/30/2015 07:19:57 12/29/1912/30/2015 TSH, serum or plasm a TSH 1.16 mIU/L normal Refer ence Range > or = 20 Years 0.40- 4.50 Pregn mohsen Range s First trime ster 0.26- 2.66 Secon d trime ster 0.55- 2.73 Third trime ster 0.43- 2.91 Not Available [address], [address], 12/30/2015 07:19:58 03/24/20 15 03/24/2015 ultra sound , abdom en, limit ed No observ ation record ed. [facility] Scheduling Imaging Referrals [address], [place], [address], 03/27/2015 16:01:06 12/11/19 16 12/09/2015 imagi ng/di veliaos tic resul t No observ ation record ed. [email or web address] [facility] Scheduling Imaging Referrals [address], [place], [address], 12/13/2015 09:43:17 Result Notes None recorded. Problems Name Problem SNOMED Code Status Onset Date Resolution Date Notes Provider Name and Address Organization Details Recorded Time Abdominal pain 33967713 [place], [address], [facility] 6 15:24:40 Abdominal pain 62014590 Completed [place], [address], [facility] 5 16:45:28 Urinary tract infectious disease 52820543 [place], [address], [facility] 6 15:24:39 Urinary tract infectious disease 20839871 Com[place], [address], [facility] 5 16:45:29 Dehydration 69879836 [place], [address], [facility] 6 15:24:39 Dehydration 04460984 Completed [place], [address], [facility] 5 16:45:28 Backache 014777404 [place], [address], [facility] 6 15:24:39 Backache 294661999 Completed Jerri Lee MD [address] [place], [address], [facility] 5 16:45:29 Vaginal discharge 522227162 Active Brenda Martinez APRN [address] [place], [address], [facility] 6 15:24:39 Vaginal discharge 043506552 Completed Jerri Lee MD [address] [place], [address], [facility] 5 16:45:28 Dysuria 61199174 Active Brenda Martinez APRN [address] [place], [address], [facility] 6 15:24:40 Dysuria 90863795 Completed Jerri Lee MD [address] [place], [address], [facility] 5 16:45:28 Chlamydial infection 313089234 Active Brenda Martinez APRN [address] [place], [address], [facility] 6 15:24:39 Chlamydial infection 323524765 Completed Jerri Lee MD [address] [place], [address], [facility] 5 16:45:28 Chlamydia detected by PCR (polymerase chain reaction) 222334037 [place], [address], [facility] 6 15:24:40 Chlamydia detected by PCR (polymerase chain reaction) 628421178 Completed [place], [address], [facility] 5 16:45:28 Hypertensiv e disorder 92095880 Active Brenda Martinez APR[place] [address], [address], [facility] 6 15:37:18 Leukocytosi s 939937620 Active Brenda Martinez APR[place] [address] [place], [address], [facility] 6 16:19:59 Problem Notes None recorded. Procedures Surgical History Date Name Laterality Status Provider Name and Address Organization Details Recorded Time 5 Caesarean Section completed [facility] 03/07/2015 15:35:55 4 Date of Last Pap Smear completed Jerri Lee MD [address] [place] [address], [address], [facility] 03/07/2015 16:55:01 9 Orthopedic Surgery completed [facility] 10/04/2014 10:59:47 Imaging Results None recorded. Procedure Notes None recorded. Medical Equipment None Reported. Allergies No known drug allergies Medications Name Sig Start Date Stop Date Status Note LastModified by Organization Details LastModified Time nifedipine ER 30 mg tablet,exten ded release 24 hr Take 1 tablet every day by oral route. active Not Available Not Available No t Available hydrocodone 5 mg-acetamino phen 325 mg tablet Take 1 tablet every 6 hours by oral route. active Not Available Not Available No t Available Zithromax 250 mg tablet Take all 4 tablets at one time 2014 active Not Available Not Available Not Avai lable metronidazol e 500 mg tablet Take 1 tablet every 8 hours by oral route. 2014 active Not Available Not Available Not Avai lable Nexium 20 mg capsule,kierra yed release Take 1 capsule every day by oral route. active Not Available Not Available No t Available nifedipine ER 60 mg tablet,exten ded release 24 hr Take 1 tablet every day by oral route. active Not Available Not Available No t Available lisinopril 10 mg tablet Take 1 tablet every day by oral route for 30 days. 2015 active Not Available Not Available Not Avai lable labetalol 100 mg tablet ONE TABLET TWICE DAILY 03/21 completed Not Available Not Available Not Available amoxicillin 875 mg-potassium clavulanate 125 mg tablet Take 1 tablet every 12 hours by oral route. 2014 active Not Available Not Available Not Avai lable ONE TABLET DAILY active Not Available Not Available No t Available Vitals Date Recorded Body weight Oxygen saturation Oxygen saturation in Arterial blood by Pulse oximetry Body height Body mass index (BMI) Body temperature Heart rate Respiratory rate Systolic And Diastolic Systolic And Diastolic Provider Name and Address Organization Details Last Updated DateTime 6 055297. 39127 g 98 % 98 % 175.26 cm 32.8 kg/m2 97.1 [degF] 89 /min 20 /min 150/100 mm[Hg] 138/90 mm[Hg] Melanie Li LPN [facility] 6 15:13:16 Date Recorded Body height Body mass index (BMI) Body weight Heart rate Systolic And Diastolic Systolic And Diastolic Provider Name and Address Organization Details Last Updated DateTime 5 175.26 cm 33.7 kg/m2 966290. 48867 g 80 /min 144/100 mm[Hg] 130/90 mm[Hg] Tamara [facility] 5 16:01:54 Date Recorded Systolic And Diastolic Provider Name and Address Organization Details Last Updated DateTime 03/13/2015 140/90 mm[Hg] [facility] Rodgers [facility] 03/13/2015 15:33:48 Date Recorded Body height Body mass index (BMI) Heart rate Body weight Systolic And Diastolic Provider Name and Address Organization Details Last Updated DateTime 03/17/2015 175.26 cm 34.1 kg/m2 76 /min 711454.8 3747 g 152/98 mm[Hg] Tamara [facility] 03/17/2015 14:30:42 Date Recorded Heart rate Body weight Body height Body mass index (BMI) Systolic And Diastolic Provider Name and Address Organization Details Last Updated DateTime 03/23/2015 72 /min 354782.2 0695 g 175.26 cm 34.7 kg/m2 138/102 mm[Hg] Tamara Anguiano [facility] 03/23/2015 10:36:41 Social History Question Answer Notes LastModified by [employer] Details LastModified Time Tobacco Smoking Status Never Smoker Tamara nation, [facility] 10/04/2014 11:00:54 What Is Your Level Of Caffeine Consumption? Occasional Information not available 03/23/2015 How Much Tobacco Do You Chew? None Information not available 10/04/2014 What Type Of Diet Are You Following? REGULAR Information not available 12/29/2015 Which Illicit Or Recreational Drugs Have You Used? NONE Information not available 10/04/2014 Education 12 Information no t available 12/29/2015 Hard Of Hearing Or Deaf In One Or Both Ears? No Information not available 12/29/2015 Legally Blind In One Or Both Eyes? No Information no t available 12/29/2015 Marital Status Single Informatio n not available 03/23/2015 Seat Belts Used Routinely Yes Information not available 12/29/2015 Smoke Alarm In Home Yes Information not available 03/23/2015 Sex: Unknown Functional Status Question Answer Note LastModified by Organizat ion Details LastModified Time What is your level of alcohol consumption? None Information not available 10/04/2014 What is your occupation? [employer] Information not available 12/29/2015 What is your exercise level? Occasional Information not available 12/29/2015 Mental Status None recorded. Family History Relationship Description Onset Age of this Age Resolved Age Notes LastModified by Organization Details LastModified Time Father Well male adult fwages Not available 2015 15:13:16 Mother History of hypotension fwages Not available 09/2015 15:13:16 Medical History No medical history recorded. Gynecological History Statement/Question Response Abnormal Pap N Flow Moderate On BCP's at Conception? N HPV Vaccine N Duration of Flow (days) 4 Age at Menarche 15 Current Control Method Tubal Ligat ion Age at First Child 20 Frequency of Cycle (Q days) 28 Menses Monthly Y Date of Last Pap Smear 09/15/2014 Approximate Obstetrics History GPAL:G 3 P 2 1 0 3 Type Value Full Term 2 Premature 1 Living 3 Total 3 Immunizations Vaccine Type Date Status Note Provider Nam e and Address Organization Details Recorded Time Tdap 12/07/2014 completed Jerri Lee MD [address] [place] [address], [address], [facility] 12/08/2014 13:15:05 Influenza, high-dose, trivalent, PF 08/10/2014 completed Tamara nation [facility] 10/04/2014 10:50:24 Past Encounters Encounter ID Performer Location Encounter Start Date Encounter Closed Date Diagnosis/Indication Diagnosis SNOMED-CT Code Diagnosis ICD10 Code Diagnosis IMO Codes Diagnosis Note [id number] Jerri Lee MD [address] [place] [address] 10/04/2014 09:48:40 10/04/2014 14:00:01 Normal [id number] Jerri Lee MD [address] [place] [address] 10/26/2014 10:03:50 10/26/2014 13:29:20 Abdominal pain 89228869 Normal 53223597 Urinary tr act infectious disease 33268813 She has evidence of a mild UTI, I will give her rocephin Dehydration 04044170 She w ill get IV fluids at [facility] [id number] Jerri Lee MD [address] [place] [address] 11/08/2014 16:52:35 11/09/2014 10:49:24 Normal [id number] Jerri Lee MD [address] [place] [address] 11/30/2014 11:27:04 11/30/2014 13:23:04 Backache 245120080 She has a UTI I will treat with augmentin Normal 11039816 Urinary tr act infectious disease 35481760 She has evidence of a mild UTI, [id number] Jerri Lee MD [address] [place] [address] 12/08/2014 11:29:39 12/08/2014 14:09:54 Normal [id number] Jerri Lee MD [address] [place] [address] 12/22/2014 10:37:33 12/22/2014 12:21:47 Normal 12940754 Vaginal discharge 047495897 Wet prep does show WBCs and many epi's. will treat her for a bacterial vaginosis with flagyl. I am going to repeat her tests for CG and chlamydia, too Dysuria 60266774 Urine shows that she is a bit concentrat ed and I advised her to drink more fluids. SHe did have 1+ bacteria and will culture the urine, [id number] Jerri Lee MD [address] [place] [address] 01/05/2015 11:23:25 01/05/2015 14:25:44 Normal 93411911 Chlamydial infection 772393107 [id number] Jerri Lee MD [address] [place] [address] 01/19/2015 11:02:25 01/19/2015 12:02:44 Normal [id number] Jerri Lee MD [address] [place] [address] 01/26/2015 11:49:59 01/26/2015 12:40:57 Chlamydia detected by PCR (polymerase chain reaction) 608491543 Normal [id number] Jerri Lee MD [address] [place] [address] 02/03/2015 09:19:56 02/03/2015 10:32:06 Normal [id number] Jerri Lee MD [address] [place] [address] 02/10/2015 10:11:22 02/10/2015 12:09:50 Normal [id number] Jerri Lee MD [address] [place] [address] 03/07/2015 15:09:51 03/07/2015 17:14:12 Postoperative visit 310847934 She is doing well. BP is slightly elevated today but no meds needed. She will return for recheck [id number] Jerri Lee MD [address] [place] [address] 03/13/2015 15:25:18 03/14/2015 10:40:41 Hypertensive disorder 11455692 [id number] Jerri Lee MD [address] [place] [address] 03/17/2015 14:21:05 03/17/2015 15:30:36 Hypertensive disorder 18642625 I am g oing to have her increase her labetalol 200 mg b.i.d.. I will check a CMP and CBC today. She will follow up with me in 1 week Abdominal pain 33588023 I believe she has some gastritis but I will go ahead and check liver test and amylase on her. I gave her samples of Nexium 20 mg take 1 daily [id number] Jerri Lee MD [facility] [address] [place] [address] [place] [address] 03/23/2015 10:19:58 03/23/2015 11:30:34 Hypertensive disorder 22325660 Her bl ood pressure is still elevated. She has been out of her medicine for 2 days but she says the blood pressure was still elevated while she was on the labetalol. I will change her to Nifedical 30 mg daily. Recheck in 2 weeks Abdominal pain 09580086 Sh laura continues to have pain in the epigastriu m and right upper quadrant area. Nexium was not helpful. I will get a gallbladde r ultrasound [id number] Brenda Martinez APRN [facility] [address] [place] [address] [place] [address] 12/29/2015 14:52:58 01/01/2016 09:48:05 Hypertensive disorder 25465047 I10 her blood pressure has been elevated. Will start her on an BILL and check some labs. WIll reevaluate in 4 weeks. I have also encouraged DASH diet and increasing aerobic activity daily. She does not smoke, she has no immediate family hx of heart disease. Health Concerns Section Related Observation LastModified by Organization Kassi LastModified Time None Recorded Concern Status LastModified by Organization Details LastModified Time None Recorded Advance Directives Directive None Recorded Payers Insurance Date Sequence Insurance Name Policy Number Policy Mar Covered Member ID Mar Member ID Guarantor Name 12/22/2014 1 [place] CLARY [employer] [id number] Christy Shaddox 02/09/2015 1 *SELF PAY* Ra grace [employer] 07/11/2020 1 [place] Estrella Shaddox [id number] Christy Shaddox 04/26/2016 PAYMENT PLAN Christy Chavezox Notes Date Note Type Note Provider Name and Address Organization Details Recorded Time 5 text/html VisitReported by PatientHPIFor onset/timing, patient reportsdate of delivery: (02/13/15). For quality, patient reportsprimary lst c/s. For context, patient reportscomplications of : none, complications: none,feeding choice: bottle, andgood support from partner/family. For associated symptoms, patient reportsno abnormal bleeding,no pelvic pain,laceration well healed,no constipation,no fecal incontinence,no dysuria,no urinary incontinence,no fever,no problems, andno mastitis.ROS as noted in the HPI Jerri Lee MD [address] [place] [address], [address], [facility] 03/07/2015 16:55:34 5 text/html Chest PainReported by PatientHPIFor quality, patient reportspressure. For associated symptoms, patient reportsexertional dyspneaanddizzinessbut reportsno dyspnea,no associated palpitations, andno nausea. For location, patient reportschest. For severity, patient reportsnot limiting. For duration, patient reportsstarted 3 days ago. For onset/timing, patient reportsoccurs daily. For alleviating factors, patient reportsnothing gives relief.Has dizziness and light headedness. Her BP has been elevated when she checks it at home. She has had chest pain associated with the, SHe complains of headaches. She has mild shortness of breath. No edema. She has some colored spots in front of her eyes at time. SHe started labetalol 50 mg bid 2 days ago, She is one month .ROS as noted in the HPI Jerri Lee MD [address] [place] [address], [id number], [facility] 03/17/2015 15:05:09 5 text/html Hypertension F/UReported by PatientHPIFor lifestyle, patient reportsnot exercising regularlybut reportslimiting/avoiding salt. For medications, patient reportsnot taking medications as directed (ran out of the labetalol.)but reportsno side effects from medication. For associated symptoms, patient reportsno dizziness,no lightheadedness,no chest pain,no shortness of breath,no palpitations,no edema, andno calf pain with exertion(headache today.).She still feels bad, has a headache frequently. No swelling. Abdominal PainReported by PatientAbdominal PainFor quality, patient reportsbloatingandcramping. For associated symptoms, patient reportsnauseabut reportsno feverandno blood in the urine. For location, patient reportsepigastric. For severity, patient reportsmoderate. For onset/timing, patient reportswax/wane. For modifying factors, (tried nexium with out benefit, it seemed to cause nausea).CMP, amylase, lipase were drawn last week and were normal.ROS as noted in the HPI Jerri Lee MD [address] [place] [address], [id number], [facility] 03/23/2015 11:09:03 6 text/html Hypertension F/UReported by PatientHPIFor associated symptoms, patient reportsdizziness (last pm, none now),lightheadedness (;last pm; none now.), andchest pain (last pm; none now.). For medications, patient reportsnot taking medications as directed (has been off nifidepine for several months.)but reportschecks blood pressure at home, range: (160's/100's.). For lifestyle, patient reportsregular exercise.presents today for evaluation of hypertension. She notes that she did not feel right at work last PM, felt dizzy, no LOC, no headache. She notes that she was just not feeling right. Likewise, she has been off her blood pressure medication that Dr. Lee had prescribed back in the summer of 2014 for quite some time. She notes that she had been on nifedipine 60mg and noted that her blood pressure were still in the 100's diastolic. Denies congenital heart disease. Hitesh Salazar MD [address] [place] [address], [id number], [facility] 12/30/2015 04:38:41 OBGyn Episode Ob Episode Information Episode Created Date Number of Fetuses Patient Bloodtype Patient rh Status Prepregnancy Weight lbs Domestic Partner Domestic Partner Phone Father Name Keg Header Status 10/04/19 15 1 CLOSED Fetus Data First Name Last Name Admitted to NICU Weight (g) Sex Living Outcome Pediatric Complications Fetus ID Race Codes Race Delivery Type 4222.94 152 M [id number] Cesar Calculation Initial Cesar Date Initial Exam Date Initial Exam Provider Initial Ultrasound Date Last Menstrual Period Date Ultra Sound Weeks Gestation 0 Eighteen To Twenty Week Cesar Update Ultra Sound Date Fundal Height At Umbil Quickening Date Ultra Sound Latest Weeks Gestation Final Cesar Confirmed By Final Cesar Confirmed Date Final Cesar Date Ultra Sound Latest Days Gestation 0 0 Menstrual History Last Menstrual Date Menses Monthly On Bcp Conception Prior Menses Frequency Hcg Plus Date Menarche Onset Age Delivery Information Delivery Date Delivery Type Labor Anesthesia Weeks Gestation Incision Type Labor Labor Length Hrs Delivered By Post Complications Tubal Sterilization Discharge Date Comments 3 40 false 6 Discharge Information Feeding Method Contraceptive Method Maternal HG B and HCT Levels Ob Episode Information Episode Created Date Number of Fetuses Patient Bloodtype Patient rh Status Prepregnancy Weight lbs Domestic Partner Domestic Partner Phone Father Name Keg Header Status 10/04/19 15 1 CLOSED Fetus Data First Name Last Name Admitted to NICU Weight (g) Sex Living Outcome Pediatric Complications Fetus ID Race Codes Race Delivery Type 3801.10 [id number] F [id number] Cesar Calculation Initial Cesar Date Initial Exam Date Initial Exam Provider Initial Ultrasound Date Last Menstrual Period Date Ultra Sound Weeks Gestation 0 Eighteen To Twenty Week Cesar Update Ultra Sound Date Fundal Height At Umbil Quickening Date Ultra Sound Latest Weeks Gestation Final Cesar Confirmed By Final Cesar Confirmed Date Final Cesar Date Ultra Sound Latest Days Gestation 0 0 Menstrual History Last Menstrual Date Menses Monthly On Bcp Conception Prior Menses Frequency Hcg Plus Date Menarche Onset Age Delivery Information Delivery Date Delivery Type Labor Anesthesia Weeks Gestation Incision Type Labor Labor Length Hrs Delivered By Post Complications Tubal Sterilization Discharge Date Comments 1 40 false 21 Discharge Information Feeding Method Contraceptive Method Maternal HG B and HCT Levels Ob Episode Information Episode Created Date Number of Fetuses Patient Bloodtype Patient rh Status Prepregnancy Weight lbs Domestic Partner Domestic Partner Phone Father Name Keg Header Status 10/04/19 15 1 A Positive CLOSED Fetus Data First Name Last Name Admitted to NICU Weight (g) Sex Living Outcome Pediatric Complications Fetus ID Race Codes Race Delivery Type false M true Prematur e [id number] [id number] White Problems Problem Notes Problem Name Start Date End Date Resolution Snomed Code Not e Backache [id number] Chlamydial infection [id number] Chlamydia detected by PCR (p olymerase chain reaction) [id number] Urinary tract infectious disease 69181003 Dehydration [id number] Vaginal discharge [id number] Dysuria 04301553 Abdominal pain [id number] Cesar Calculation Initial Cesar Date Initial Exam Date Initial Exam Provider Initial Ultrasound Date Last Menstrual Period Date Ultra Sound Weeks Gestation 02/18/2015 10/04/2014 [place] [id number] 10/10/2014 04/04/2014 21 Eighteen To Twenty Week Cesar Update Ultra Sound Date Fundal Height At Umbil Quickening Date Ultra Sound Latest Weeks Gestation Final Cesar Confirmed By Final Cesar Confirmed Date Final Cesar Date Ultra Sound Latest Days Gestation 0 [email or web address] 10/26/2014 02/19/20 15 0 Pre- Flowsheet Flowsheet Date 10/04/2014 Carrera Score Blood Edema Fundus Height Fundus Units Glucose Ketones Leukocytes Nitrite Labor Signs Protein Cervic Dilation Cervic Effacement Cervic Station 20 wks none Type Weight in lbs Pre/Post Dialysis Refused 234.922975439192 BP Diastolic BP Location Tested BP Systolic BP Type 74 110 Fetus Heart Rate Present A 150 Fetus Movement A Yes Comments Here for OB, Health dept. tr brittanyrobyn. She had a Mirena removed in early 2013 and her periods were very irregular. She had an US at the help center that put her at 8 1/2 weeks in late Jun. She has had FM for 2 weeks. SHe does not have a cat, She does have a personal history of varicella. She was treated for chlamydia last month. Her partner has been unreachable for treatment. AFP discussed and drawn today, O'Stewart and HCT done today. She wants to have a BTL after this . Flowsheet Date 10/26/2014 Carrera Score Blood Edema Fundus Height Fundus Units Glucose Ketones Leukocytes Nitrite Labor Signs Protein Cervic Dilation Cervic Effacement Cervic Station none 27 cm none Nico Escobar trace 0cm 30% Type Weight in lbs Pre/Post Dialysis Refused 238.039003185532 BP Diastolic BP Location Tested BP Systolic BP Type 80 120 Fetus Heart Rate Present A 130 Fetus Movement A Yes Comments She complains of frequent co ntractions for the past 3 days. no bleeding , No ROM. FFN collected, UA does have 5-10 WBCs and is concentrated. Her cervix is closed at the internal os. I will send her to L&D for some IV fluids and Rocephin. FFN is pending. Urine will be cultured. She needs O'Stewart and HCT next visit Flowsheet Date 11/08/2014 Carrera Score Blood Edema Fundus Height Fundus Units Glucose Ketones Leukocytes Nitrite Labor Signs Protein Cervic Dilation Cervic Effacement Cervic Station trace 29 cm none none neg Type Weight in lbs Pre/Post Dialysis Refused 238.017937202399 BP Diastolic BP Location Tested BP Systolic BP Type 80 120 Fetus Heart Rate Present A 145 Fetus Movement A Yes Comments NO bleeding, no ROM. She tomlinson s have some numbness in her feet. We will check on US next visit. TDAP recommended at the health department Flowsheet Date 11/30/2014 Carrera Score Blood Edema Fundus Height Fundus Units Glucose Ketones Leukocytes Nitrite Labor Signs Protein Cervic Dilation Cervic Effacement Cervic Station none 29 cm none Backpain neg Type Weight in lbs Pre/Post Dialysis Refused 245.737099333161 BP Diastolic BP Location Tested BP Systolic BP Type 88 120 Fetus Heart Rate Present A 150 Fetus Movement A Yes Comments She complains of pain in her low back that started this am, worse with bending, No dysuria or hematuria. Her urine has 1+ bacteria I will treat with augmentin Flowsheet Date 12/08/2014 Carrera Score Blood Edema Fundus Height Fundus Units Glucose Ketones Leukocytes Nitrite Labor Signs Protein Cervic Dilation Cervic Effacement Cervic Station 1+ 32 cm none none neg Type Weight in lbs Pre/Post Dialysis Refused 246.213270234167 BP Diastolic BP Location Tested BP Systolic BP Type 80 126 Fetus Heart Rate Present A 140 Fetus Movement A Yes Comments SHe denies headaches she is having mild swelling. BP is OK, NO ROM no bleeding. SHe has soreness in her pelvis. Back exercises discussed today. She had her TDAP yesterday. She does want a BTL. Papers signed today Flowsheet Date 12/22/2014 Carrera Score Blood Edema Fundus Height Fundus Units Glucose Ketones Leukocytes Nitrite Labor Signs Protein Cervic Dilation Cervic Effacement Cervic Station trace 32 cm none Cramping trace Type Weight in lbs Pre/Post Dialysis Refused 242.351253096150 BP Diastolic BP Location Tested BP Systolic BP Type 80 120 Fetus Heart Rate Present A 155 Fetus Movement A Yes Comments NO bleeding, No ROM. SHe has had lower abdominal cramping. Was seen at L&D over the weekend and was told she was a cm. SHe has a greenish vaginal discharge Flowsheet Date 01/05/2015 Carrera Score Blood Edema Fundus Height Fundus Units Glucose Ketones Leukocytes Nitrite Labor Signs Protein Cervic Dilation Cervic Effacement Cervic Station trace 34 cm none [place] Escobar trace Type Weight in lbs Pre/Post Dialysis Refused 243.498367143123 BP Diastolic BP Location Tested BP Systolic BP Type 70 110 Fetus Heart Rate Present A 130 Fetus Movement A Yes Comments No bleeding, no ROM. Her maciel t was positive chlamydia but we were unable to contact her. I will treat her with zithromax today. There is not a partner that she is with at this time. GBS next visit. Flowsheet Date 01/19/2015 Carrera Score Blood Edema Fundus Height Fundus Units Glucose Ketones Leukocytes Nitrite Labor Signs Protein Cervic Dilation Cervic Effacement Cervic Station trace 37 none Nico Escobar neg 1cm 40% Type Weight in lbs Pre/Post Dialysis Refused 250.609450217321 BP Diastolic BP Location Tested BP Systolic BP Type 80 136 Fetus Heart Rate Present A 125 Fetus Movement A Yes Comments NO bleeding, no ROM. She has been under a lot stress. SHe may lose her place to live. GBS done Cx is 1-2 cm. She needs a repeat chlamydia test next visit Flowsheet Date 01/26/2015 Carrera Score Blood Edema Fundus Height Fundus Units Glucose Ketones Leukocytes Nitrite Labor Signs Protein Cervic Dilation Cervic Effacement Cervic Station 1+ 38 cm none Uterine Contract ions neg 3cm 40% -4 Type Weight in lbs Pre/Post Dialysis Refused 251.55838022071 BP Diastolic BP Location Tested BP Systolic BP Type 80 130 Fetus Heart Rate Present A 135 Fetus Movement A Yes Comments No bleeding, no ROM. She has swelling but no headache. Repeat urine test for Chlamydia today. Her GBS was positive. Flowsheet Date 02/03/2015 Carrera Score Blood Edema Fundus Height Fundus Units Glucose Ketones Leukocytes Nitrite Labor Signs Protein Cervic Dilation Cervic Effacement Cervic Station trace 39 cm none Uterine Contract ions neg 3cm 60% -3 Type Weight in lbs Pre/Post Dialysis Refused BP Diastolic BP Location Tested BP Systolic BP Type 86 130 Fetus Heart Rate Present A 140 Fetus Movement A Yes Comments No bleeding, No ROM. Cervix is very posterior. Repeat chlamydia was negative. Induction scheduled for 02-13-15.. Flowsheet Date 02/10/2015 Carrera Score Blood Edema Fundus Height Fundus Units Glucose Ketones Leukocytes Nitrite Labor Signs Protein Cervic Dilation Cervic Effacement Cervic Station trace 38 none Uterine Contract ions trace 3cm 60% -3 Type Weight in lbs Pre/Post Dialysis Refused 250.822446608848 BP Diastolic BP Location Tested BP Systolic BP Type 86 130 Fetus Heart Rate Present A 150 Fetus Movement A Yes Comments She had some bloody show a f ew days ago. No ROM. Cx is 3-4 cm, 60 % effaced. Flowsheet Date 03/07/2015 Carrera Score Blood Edema Fundus Height Fundus Units Glucose Ketones Leukocytes Nitrite Labor Signs Protein Cervic Dilation Cervic Effacement Cervic Station Type Weight in lbs Pre/Post Dialysis Refused 228.392427771095 BP Diastolic BP Location Tested BP Systolic BP Type 100 144 sitting 90 130 Fetus Heart Rate Present Fetus Movement Comments Menstrual History Last Menstrual Date Menses Monthly On Bcp Conception Prior Menses Frequency Hcg Plus Date Menarche Onset Age 0704/04/2014 Genetic Screening And Infection History Question Response Note Patient's Age Will Be 35 Yea rs Or Older At Estimated Date of Delivery false Thalassemia (Latvian, Malay, Mediterranean, Or Background): MCV < 80 false Neural Tube Defect (Meningom yelocele, Spina Bifida, Or Anencephaly) false Congenital Heart Defect false Down Syndrome false Roland-Sachs (eg, Sikhism, Cajun , Beninese-German) false Kady Disease false Sickle Cell Disease Or Trait () false Hemophilia Or Other Blood Disorders false Muscular Dystrophy false Cystic Fibrosis false [place]'s Chorea false Mental Retardation/Autism true brothe r with Autism and Tourette's If Yes, Was Person Tested For Fragile X? false Other Inherited Genetic Or C hromosomal Disorder false Maternal Metabolic Disorder (eg, Type 1 Diabetes, PKU) false Patient Or Baby's Father Had A Child With Defects Not Listed Above false Recurrent Loss, Or A Stillbirth false Medications (including Suppl ements, Vitamins, Herbs, OTC Drugs), Illicit/Recreational Drugs, Alcohol false If Yes, Agent(s) And Strength/Dosage false Any Other Genetic History false Live With Someone With TB Or Exposed To TB false Patient Or Partner Has Histo ry Of Genital Herpes false Rash Or Viral Illness Since Last Menstrual Period false History Of STD, Gonorrhea, C hlamydia, HPV, Syphilis true chlamydia Other Infection History false Plans and Education First Trimester Discussed Date Discussion Item Discussion Note Discuss ed By Second Trimester Discussed Date Discussion Item Discussion Note Discuss ed By Third Trimester Discussed Date Discussion Item Discussion Note Discuss ed By 01/19/2015 movement monitoring mb [email or web address] 01/19/2015 Labor signs [email or web address] Delivery Information Delivery Date Delivery Type Labor Anesthesia Weeks Gestation Incision Type Labor Labor Length Hrs Delivered By Post Complications Tubal Sterilization Discharge Date Comments 5 Sponta neous Regional-Ep idural 39.2 Low Transvers e Lee None true 02/15/2015 Discharge Information Feeding Method Contraceptive Method Maternal HG B and HCT Levels Bottle BTL
--- OUTSIDE RECORDS SUMMARY | 2025-08-03 10:11 | XMS_ITS | Clinical Summary ---
Author Organization [facility] Address [address] [place] [address] Phone Care Team Providers Care Vocal Music Instructor Name Role Phone Provider, None Primary Care [...] on file Legal Sex Female 8:52 PM CONSULTING PSYCHIATRIST Gender Identity Not on file Sexual Orientation Not on file Last Filed Vital Signs Vital Sign Reading Time Taken Comments Blood Pressure 136/78 10/03/2019 11:15 AM CONSULTING PSYCHIATRIST Pulse 87 10/03/2019 11:15 AM CONSULTING PSYCHIATRIST Temperature 36.9 C (98.4 F) 10/03/2019 11:15 AM CONSULTING PSYCHIATRIST Respiratory Rate 16 10/03/2019 11:15 AM CONSULTING PSYCHIATRIST Oxygen Saturation 100% 10/03/2019 11:15 AM CONSULTING PSYCHIATRIST Inhaled Oxygen Concentration - - Weight 90.7 kg (200 lb) 10/03/2019 11:15 AM CONSULTING PSYCHIATRIST Height 175.3 cm (5' 9) 10/03/2019 11:15 AM CONSULTING PSYCHIATRIST Body Mass Index 29.53 10/03/2019 11:15 AM CONSULTING PSYCHIATRIST Plan of Treatment Health Maintenance Due Date Last Done Comments Hepatitis C Virus (HCV) Screening 1991 Hepatitis B Immunization (1 of 3 - 19+ 3-dose series) 2010 Pap Smear 2012 Human Papillomavirus (HPV) Immunization (1 - 3-dose SCDM series) 2018 Cervical Cancer Screening (CCS) 2021 HPV/Cotest 2021 Influenza Immunization (#1) 2025 SARS-COV-2 Immunization (3 - season) 2025 01/20/2021, 12/30/2020 Respiratory Syncytial Virus (RSV) Immunization [...] age to complete this topic Insurance [employer] [place] [place] [id number] Care Teams Vocal Music Instructor Relationship Specialty Start Date End Date Provider, None [place] PCP - General 08/29/19
--- OUTSIDE RECORDS SUMMARY | 2025-08-03 10:11 | XMS_ITS | Clinical Summary ---
Author Organization [facility] Address [address] [place] [address] Care Team Providers Care Supervising Editor Trailer Name Role Phone Stevie Carmona MD Primary Care Provider [phone] Allergies No known active allergies Medications ondansetron [...] 10:46 AM CDT Height 175.3 cm (5' 9) 01/31/2022 10:4 6 AM CDT Body Mass Index 35.52 01/31/2022 10:46 AM CDT Plan of Treatment Not on file Insurance [facility] Care Teams Supervising Editor Trailer Relationship Specialty Start Date End Date Stevie Carmona MD PCP - General Emergency Medicine 01/31/22
--- NOTE | 2025-08-03 15:05 | ED.GENADULT ---
HPI - General Adult General Chief complaint: Extremity Injury, Lower Stated complaint: L pinky toe injury Time Seen by Provider: 08/03/25 11:14 History of Present Illness HPI narrative: 35-year-old female presents after a fall with complaints of left foot and ankle pain. Patient denies hitting her head. States she was unable to bear weight immediately after the fall and still cannot bear weight. Denies midfoot, 5th metatarsal pain, and lateral/medial malleolar pain. Denies numbness or tingling and is neurovascularly intact. Related Data Allergies Allergy/AdvReac Type Severity Reaction Status Date / Time No Known Allergies Allergy Verified 08/03/25 13:42 Review of Systems Review of Systems: All systems reviewed & are unremarkable except as noted in HPI and below PMFSH Past Medical History Medical History Healthy female adult Surgical History Surgical History History of tubal ligation History of section Social History Social History Gender identity (if verbalized by the patient): Female Exam Narrative: GENERAL: Well-appearing, well-nourished, and in no acute distress. HEAD: Normocephalic, atraumatic. EYES: PERRLA and EOMI. ENT: Nares clear, no rhinorrhea or epistaxis. Mucous membranes moist. Oropharynx without tonsillar hypertrophy exudate or other lesions. Bilateral TMs pearly fatima non-bulging NECK: Supple. No adenopathy or masses. No carotid bruits or JVD CHEST: Clear to auscultation. No respiratory distress. No wheezes rales or rhonchi HEART: Regular rate and rhythm. No murmur heard. Normal peripheral pulses. ABDOMEN: Soft, nontender, nondistended, normal active bowel sounds. EXTREMITIES: Mild left lateral ankle edema and bruising. ROM and strength limited due to pain. Neurovascular intact. SKIN: Warm, dry, no rash. NEURO: No focal deficits. Alert and oriented x3. PSYCH: Normal mood and affect Course Vital Signs Vital signs: Vital Signs Temperature 97.7 F 08/03/25 09:33 Pulse Rate 95 08/03/25 09:33 Respiratory Rate 18 08/03/25 09:33 Blood Pressure 146/99 H 08/03/25 09:33 Pulse Oximetry 98 08/03/25 09:33 Oxygen Delivery Room Air 08/03/25 09:33 Temperature 97.7 F 08/03/25 09:33 Pulse Rate 95 08/03/25 09:33 Respiratory Rate 18 08/03/25 09:33 Blood Pressure 146/99 H 08/03/25 09:33 Pulse Oximetry 98 08/03/25 09:33 Oxygen Delivery Room Air 08/03/25 09:33 Medical Decision Making MDM Narrative Medical decision making narrative: 35-year-old female presents after a fall with complaints of left foot and ankle pain. Patient denies hitting her head. States she was unable to bear weight immediately after the fall and still cannot bear weight. Denies midfoot, 5th metatarsal pain, and lateral/medial malleolar pain. Denies numbness or tingling and is neurovascularly intact. Exam revealed mild left lateral ankle edema and bruising. Left ankle x-rays demonstrated no acute fracture or dislocation as well as a chronic avulsion fracture fragment lateral malleolus tip. The left foot XR demonstrated no fracture or dislocation. Patient was Nilson wrapped and given crutches. She was given instructions to be nonweightbearing on the affected leg until able to bear weight without pain. Ice and elevate extremity. Tylenol and ibuprofen as needed for pain. Results reviewed and patient was advised to follow-up closely with PCP for further care. Patient verbalized understanding and was comfortable with d/c home. Medical Records Medical records reviewed: Yes I reviewed the external patient's medical records. Vital Signs Vital Signs: Vital Signs Temperature 97.7 F 08/03/25 09:33 Pulse Rate 95 08/03/25 09:33 Respiratory Rate 18 08/03/25 09:33 Blood Pressure 146/99 H 08/03/25 09:33 Pulse Oximetry 98 08/03/25 09:33 Oxygen Delivery Room Air 08/03/25 09:33 Temperature 97.7 F 08/03/25 09:33 Pulse Rate 95 08/03/25 09:33 Respiratory Rate 18 08/03/25 09:33 Blood Pressure 146/99 H 08/03/25 09:33 Pulse Oximetry 98 08/03/25 09:33 Oxygen Delivery Room Air 08/03/25 09:33 Lab Data Lab results reviewed: Yes I reviewed the patient's lab results. Imaging Data Attestation: I personally reviewed and interpreted this imaging study as follows: Radiologist's impression: Left ankle: 1. No acute fracture or dislocation left ankle. 2. Chronic avulsion fracture fragment lateral malleolus tip. Left foot: 1. No fracture or dislocation. Discharge Plan Discharge Clinical Impression: Ankle sprain and strain Patient Disposition: Home Condition: Stable Instructions: Ankle Sprain (ED) Additional Instructions: Return to the ER if you experience fever, redness and swelling of your extremity, numbness or any other symptoms that are concerning to you Wear NILSON wrap and use crutches. No weight on the affected leg until able to bear weight without pain. Ice and elevate extremity. Tylenol and ibuprofen as needed for pain. Follow up with your doctor for further care. Patient Language: Japanese Prescriptions: No Action naproxen 500 mg tablet 500 mg PO BID Qty: 14 0RF methocarbamol 750 mg tablet 1,500 mg PO HS Qty: 14 0RF ibuprofen 600 mg tablet 600 mg PO TID PRN (Reason: pain) Qty: 20 0RF acetaminophen 500 mg capsule 1,000 mg PO Q6H PRN (Reason: pain) Qty: 20 0RF lidocaine 4 % adhesive patch,medicated 1 patch topical DAILY PRN (Reason: pain) Qty: 5 0RF sulfamethoxazole-trimethoprim [Bactrim DS] 800-160 mg tablet 1 tablet PO Q12H 5 Days Qty: 9 0RF Rx Instructions: begin 12/13/24 PM (received first dose in ED 12/13/24 AM) cyclobenzaprine 10 mg tablet 10 mg PO TID PRN (Reason: muscle spasm) Qty: 20 0RF naproxen 375 mg tablet 375 mg PO BID Qty: 14 0RF Follow-up/Referrals: PHYSICIAN,RISK CONTROL SPECIALIST [Primary Care Provider, Internal Medicine]
[2025-08-03 15:43] VITALS: BP 135/89; PULSE 74; RESP 16; O2SAT 100
--- OUTSIDE RECORDS SUMMARY | 2025-08-04 12:32 | XMS_ITS | Clinical Summary ---
Author Organization [facility] Address [address] [place] [address] Care Team Providers Care Inspector Wire Rope Name Role Phone Stevie Carmona MD Primary Care Provider [phone] Allergies No known active allergies Medications ondansetron [...] Plan of Treatment Not on file Insurance [facility] Care Teams Inspector Wire Rope Relationship Specialty Start Date End Date Stevie Carmona MD PCP - General Emergency Medicine 01/31/22
--- OUTSIDE RECORDS SUMMARY | 2025-08-04 12:32 | XMS_ITS | Clinical Summary ---
Author Organization [facility] Address [address] [place] [address] Phone Care Team Providers Care Retail Personal Banker Name Role Phone Provider, None Primary Care [...] on file Legal Sex Female 8:52 PM RE DYE [facility] Gender Identity Not on file Sexual Orientation Not on file Last Filed Vital Signs Vital Sign Reading Time Taken Comments Blood Pressure 136/78 10/03/2019 11:15 AM RE DYE [facility] Pulse 87 10/03/2019 11:15 AM RE [facility]YE [facility] Temperature 36.9 C (98.4 F) 10/03/2019 11:15 AM RE DYE HAND Respiratory Rate 16 10/03/2019 11:15 AM RE DYE HAND Oxygen Saturation 100% 10/03/2019 11:15 AM RE DYE HAND Inhaled Oxygen Concentration - - Weight 90.7 kg (200 lb) 10/03/2019 11:15 AM RE DYE HAND Height 175.3 cm (5' 9) 10/03/2019 11:15 AM RE DYE HAND Body Mass Index 29.53 10/03/2019 11:15 AM RE DYE HAND Plan of Treatment Health Maintenance Due Date [...] complete this topic Insurance [employer] [id number] Care Teams Retail Personal Banker Relationship Specialty Start Date End Date Provider, None [place] PCP - General 08/29/19
== END 2025-08-03 15:45 | disposition home or self-care (01) ==
DX: S93.402A Sprain of unspecified ligament of left ankle, initial encounter (principal); S96.912A Strain of unspecified muscle and tendon at ankle and foot level, left foot, initial encounter; W19.XXXA Unspecified fall, initial encounter
CPT/HCPCS: 73610; 73630; 99283